=== PATIENT | female | born 2000 | race American Indian/Alaskan Native ===

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

== ENCOUNTER 2019-01-02 11:22 | Observation (INO) | payer MEDICAID, OTHER, SELFPAY ==
[2018-12-03 08:25] VITALS: BMI 32.4
[2019-01-02] MEDS: TERBUTALINE 1 MG/ML VIAL 0.25 MG SUBCUT (12:19)
--- NOTE | 2019-01-02 12:34 | PM.PROC.1 ---
Procedures Date/Time Date of procedure: 01/02/19 Time of procedure: 12:35 General Procedure description: Patient came in for attempt at external cephalic version for breech presentation at 38 weeks. Patient had a reactive nonstress test. Ultrasound shows breech presentation infant with posterior placenta and adequate fluid. Patient received subcutaneous terbutaline. 2 attempts to vert the baby were unsuccessful. Patient declined further attempt. In between each attempt the heart tones were seen to be normal. She will be monitored for 1 hour. She will have a section scheduled. Complications: none
== END 2019-01-02 14:08 | disposition home or self-care (01) ==
PROVIDERS: Admitting Provider Family Medicine; PCP Family Medicine; Visit Provider Family Medicine
DX: O32.1XX0 Maternal care for breech presentation, not applicable or unspecified (principal); Z3A.38 38 weeks gestation of pregnancy
CPT/HCPCS: 59025; 59050; 59412; 76815; 96372; G0378; G0379

== ENCOUNTER 2019-01-03 05:26 | Inpatient (IN) | payer MEDICAID, OTHER, SELFPAY ==
[2018-12-03 08:25] VITALS: BMI 32.4
[2019-01-03] VITALS (15 sets, daily range): BP systolic 128–157; BP diastolic 67–106; PULSE 67–116; RESP 11–18; TEMP 35.6–36; O2SAT 98–99
[2019-01-03] MEDS: LACTATED RINGERS 1,000 ML 100 ML IV ×4 (06:40→19:48)
--- NOTE | 2019-01-03 06:49 | PM.HP.1 ---
History of Present Illness History of Present Illness Date Patient Seen: 01/03/19 Time Patient Seen: 06:49 Chief complaint: [id number] Narrative: 18-year-old G2 para 1 estimated due date of 01 09 2019 consistent with early ultrasound and unsure LMP. Patient care established at 8 weeks gestational age patient had routine follow-up care with occasional no-show visits care complications include urinary tract infections acute cholecystitis anemia breech presentation and preeclampsia with elevated blood pressure and 3+ protein. During the patient had admission to the hospital and emergency room visits for acute cholecystitis. This was managed and monitored by a surgical evaluation and 1 hospital admission with antibiotics. Deemed not to be a a good surgical candidate due to her . She also was found to be anemic and started on ferrous gluconate. Patient had intermittent use of this medication during and was anemic throughout the . Baby was found to be breech presentation on examination at 31 weeks. Patient did not want to have a so an external version was tried yesterday unsuccessfully. And the last 2 weeks of . At her 38 week visit she had an elevated blood pressure in the office but repeat blood pressure was normal. On re-evaluation by me after seeing 1 of my partners her blood pressure was still elevated she was sent to the labor and delivery floor had preeclamptic blood workup which showed normal liver enzymes other than mildly elevated alkaline phosphatase normal uric acid normal kidney function normal platelet blood pressure was elevated. Two days later version was tried without success patient was then scheduled for . On my evaluation this morning. Patient is little bit anxious. But excited about having a baby. She says overnight she had a little bit of a headache. But she has had this on and off through the . Patient is complaining of mild lower extremity edema. Intermittent contractions. And she is NPO. labs O positive blood type antibody screen negative initial hemoglobin and hematocrit 11.9 and 35.9 most recent hemoglobin 8.7 platelet count 307 HIV negative GC chlamydia negative rubella nonimmune hepatitis-C negative Pap test within normal limits varicella nonimmune. Seventeen week integrated screen was normal. Twenty week ultrasound showed normal anatomy scan with an estimated due date of January 13, 2019. Patient's past medical history includes seasonal allergies and asthma history of anemia Previous surgical history wisdom teeth Social history patient denies alcohol illicit drugs during the . Patient History Family & Social History Social History: household members family Tobacco & Substance use: Smoking Status Never smoker alcohol intake never alcohol intake frequency 0-2 drinks per day Substance Use Type does not use Meds Home Medications and Allergies Home Medications Medication Instructions Recorded Confirmed Type prenat.vits,patrick,[id number] 1 tab PO DAILY 06/03/18 01/03/19 History ferrous gluconate 324 mg (37.5 mg 324 mg PO BID #60 tab 12/09/18 01/03/19 Rx iron) tablet Allergies Allergy/AdvReac Type Severity Reaction Status Date / Time No Known Drug Allergies Allergy Verified 12/09/18 13:51 Exam Vital Signs (past 8 hours): - 01/03/19 06:06 Blood Pressure 142/84 H Narrative Exam Narrative: . General: Alert no apparent distress. Affect is appropriate. Narcisa it is uncomfortable. HEENT: Neck is supple without lymphadenopathy pupils equal round and reactive. Cardio: S1-S2 regular rate and rhythm. Respiratory: Lungs clear to auscultation. Abdomen: Gravid. Extremities: Normal deep tendon reflexes trace edema. [place]: Intermittent contractions heart tones: Category 1 tracing Objective Labs Result Diagrams: 01/03/19 06:20 Assessment & Plan Assessment & Plan narrative: 18-year-old G2 para 1 with an estimated due date of 01/09/2019 consistent with early ultrasound. Patient is in the hospital today for section. is being done due to breech presentation with Nick version preeclampsia with elevated blood pressure and 3+ protein and swelling. Patient's additional complicated care is during the she had acute cholecystitis and hospital admission for that as well as emergency room visits requiring IV antibiotics. Other compounding factors are anemia previously before and during and most recent hemoglobin is 8.0. Plan at this point. Reviewed with patient family . Risks benefits and common complications of complications including bleeding infection possible injury to bladder bowel and even . Patient's hemoglobin is quite low. Will have 2 units ready for transfusion if needed during the . Patient will consent for blood products if needed. Patient's blood pressure is elevated we will provide labetalol for the patient after the delivery. Patient will receive preoperative antibiotics cefotetan 2 g. She of a Davis catheter placed as well as SCDs. Patient also will have an epidural during the surgical procedure. Patient will have LR at 100 cc/hour. She is NPO. All questions were answered consents were obtained from the patient before the surgery.
[2019-01-03] MEDS: CEFAZOLIN 2 GM/100 ML FROZ.PIGGY IV (08:10)
[2019-01-03 08:11] LABS: Add Manual Diff / Slide Review NO; Basophils Absolute Auto 0 /uL (0-100); Basophils Percent Auto 0.6 % (0-2); Eosinophils Absolute Auto 100 /uL (0-450); Eosinophils Percent Auto 1.2 % (2-4); Hematocrit 23.6 % (36-46); Hemoglobin 7.5 g/dL (12.0-16.0); Lymphocytes Absolute Auto 1300 /uL (1100-4500); Lymphocytes Percent Auto 16.3 % (25-40); Mean Corpuscular HGB Conc 31.8 % (30-36); Mean Corpuscular Hemoglobin 23.5 PG (26-34); Mean Corpuscular Volume 73.7 fL (80-100); Monocytes Absolute Auto 500 /uL (0-900); Neutrophils Absolute Auto 6200 /uL (1500-7000); Neutrophils Percent Auto 75.9 % (50-75); Platelet Count 299 X10^3/uL (150-400); Red Cell Distribution Width 17.9 % (11.6-14.8); White Blood Cell Count 8.2 X10^3/uL (4.5-11.0)
[2019-01-03 08:16] LABS: Aspartate Aminotransferase 19 IU/L (14-36); Blood Urea Nitrogen 12 mg/dL (7-17); Estimated Glomerular Filt Rate > 60.0 mL/min (>60); Uric Acid 5.5 mg/dL (2.5-6.2)
[2019-01-03 08:22] LABS: Alkaline Phosphatase 339 U/L (38-126); Aspartate Aminotransferase 20 IU/L (14-36); BUN Creatinine Ratio 18.3 (6-22); Bilirubin Total 0.5 mg/dL (0.2-1.3); Blood Urea Nitrogen 11 mg/dL (7-17); Calcium 8.6 mg/dL (8.4-10.2); Carbon Dioxide 20 mmol/L (22-32); Chloride 109 mmol/L (98-107); Estimated Glomerular Filt Rate > 60.0 mL/min (>60); Globulin 3.1 g/dL (1.7-4.1); Glucose 83 mg/dL (70-100); HEMOLYSIS < 15 (0-50); Lactate Dehydrogenase 502 U/L (313-618); Potassium 3.9 mmol/L (3.4-5.1); Sodium 138 mmol/L (137-145); Total Protein 6.1 g/dL (6.3-8.2)
[2019-01-03 08:23] LABS: Alanine Aminotransferase < 6 IU/L (9-52)
--- NOTE | 2019-01-03 09:13 | PM.PROC.1 ---
Procedures Date/Time Date of procedure: 01/03/19 Time of procedure: 09:13 General Procedure description: Procedure: Lower segment transverse section Consent: Verbal and written informed consent were obtained from the patient placed on the chart. Indications: 18-year-old G2 para 1 39 week gestational age breech presentation preeclampsia anemia Findings: [Normal uterus normal ovaries] Normal male Anesthesia: Epidural Surgeon: [Dr. Christiano Melgar] Head Of Sales: Dr. sherlyn Acosta Estimated blood loss: 400 mL Drains: Davis to gravity. IV fluids: 1800 LR Description of procedure: The patient was brought to the operating room after her spinal epidural, preparation, and Davis had been performed. The abdomen was prepped and draped in tested for for analgesia. When it was found to be adequate, a lower abdominal Pfannenstiel incision was made with first with a knife and cared down to the fascia with a second knife. The fascia was incised in the midline and extended laterally with a knife. Bleeding points were clamped with hemostats and Bovie coagulated. The rectus muscles were by blunt dissection. The rectus muscles were divided in the midline and the peritoneum was grasped with hemostats and carefully entered with Daly scissors. The incision was extended bilaterally. The bladder blade was then placed. The vesicoperitoneum was grasped with smooth pickups, entered with Metzenbaum scissors, and extended laterally. The bladder flap was created by gently blunt dissection and placed behind the bladder blade. The lower uterine segment was noted to be thin was carefully incised with the scalpel and extended laterally with the fingers. A live infant was found to be in the breech position. Baby's bottom was then able to be successfully delivered. And then delivery of each foot. And then successful delivery of each shoulder. With gentle pressure the head was delivered on the abdomen. There was terminal meconium. The baby was in plaster the waiting attendant. The placenta was delivered manually. The uterus was explored with a wet lap sponge and found to be clear membranes. The first layer of the uterine closure was with running locking #1 chromic catgut suture. The second layer with an imbricating #1 chromic catgut suture. Hemostasis was carefully checked and found to be satisfactory. The bladder flap was closed with a running 2-0 chromic catgut suture. The fallopian tubes and ovaries were inspected and to be found normal bilaterally. After sponge and needle counts were found to be correct the peritoneum was closed with 2-0 chromic catgut suture. Rectus muscles were approximated in the lower midline. The fascia was closed with a 2-0 running 0 Vicryl from lateral to midline. The subcutaneous tissue was approximated with interrupted 2.0 plain gut. Bleeding points were Bovie and coagulated. The subcutaneous tissue was approximated with 2.0 plain gut suture. The skin was closed with 1-0 running subcuticular stitch. Urinary output was adequate and normal patient left to the recovery room in good condition.
--- NOTE | 2019-01-03 09:40 | SUR.PHASEI ---
Report called to
[2019-01-03] MEDS: KETOROLAC 30 MG/ML VIAL IV ×3 (10:02→23:02)
[2019-01-03] MEDS: LABETALOL 20 MG/4 ML SYRINGE 5 MG IV (11:22)
--- NOTE | 2019-01-03 12:14 | SUR.OPER ---
Supine on Padded OR bed, head on pillow, safety belt at thigh, arms secured on padded arm boards at <90 degrees abduction. Bump under right buttock. Legs uncrossed with pillow under knees, gel pad to heels, tape over blanket to lower legs.
[2019-01-03] MEDS: LABETALOL 100 MG TABLET 200 MG PO ×2 (13:16→21:25)
[2019-01-03 16:25] LABS: Hematocrit 23.9 % (36-46); Hemoglobin 7.3 g/dL (12.0-16.0)
[2019-01-03] MEDS: FERROUS GLUCONATE 324 MG TABLET PO (21:24)
[2019-01-04] MEDS: OXYCODONE/ACETAMINOPHEN 5/325 TABLET 2 TAB PO ×2 (05:53→21:01)
[2019-01-04 06:26] LABS: Basophils Absolute Auto 0 /uL (0-100); Basophils Percent Auto 0.4 % (0-2); Eosinophils Absolute Auto 0 /uL (0-450); Eosinophils Percent Auto 0.2 % (2-4); Lymphocytes Absolute Auto 1500 /uL (1100-4500); Lymphocytes Percent Auto 15.6 % (25-40); Mean Corpuscular HGB Conc 31.3 % (30-36); Mean Corpuscular Hemoglobin 23.2 PG (26-34); Mean Corpuscular Volume 73.9 fL (80-100); Monocytes Absolute Auto 600 /uL (0-900); Monocytes Percent Auto 6.2 % (3-14); Neutrophils Absolute Auto 7400 /uL (1500-7000); Neutrophils Percent Auto 77.6 % (50-75); Platelet Count 245 X10^3/uL (150-400); Red Blood Cell Count 2.63 X10^6/uL (4.0-5.2); Red Cell Distribution Width 17.8 % (11.6-14.8); White Blood Cell Count 9.5 X10^3/uL (4.5-11.0)
[2019-01-04 06:29] LABS: Add Manual Diff / Slide Review SLIDE REVIEW; Hematocrit 19.4 % (36-46); Hemoglobin 6.1 g/dL (12.0-16.0)
[2019-01-04 06:41] LABS: Alanine Aminotransferase 9 IU/L (9-52); Albumin 2.3 g/dL (3.5-5.0); Albumin Globulin Ratio 0.9 (1.0-2.8); Alkaline Phosphatase 204 U/L (38-126); Aspartate Aminotransferase 20 IU/L (14-36); BUN Creatinine Ratio 21.4 (6-22); Bilirubin Total 0.3 mg/dL (0.2-1.3); Blood Urea Nitrogen 15 mg/dL (7-17); Carbon Dioxide 21 mmol/L (22-32); Chloride 109 mmol/L (98-107); Estimated Glomerular Filt Rate > 60.0 mL/min (>60); Globulin 2.5 g/dL (1.7-4.1); Glucose 92 mg/dL (70-100); HEMOLYSIS < 15 (0-50); Sodium 134 mmol/L (137-145); Total Protein 4.8 g/dL (6.3-8.2)
[2019-01-04 06:47] LABS: Anisocytosis 1+; Polychromasia 1+
--- NOTE | 2019-01-04 07:03 | P.PN_ITS ---
Subjective Subjective Date Patient Seen: 01/04/19 Time Patient Seen: 07:03 Interval history: Mom did well yesterday. Had an episode of low urine output. Given a fluid bolus. Patient is starting to diurese now just fine. Had greater than 2000 mL out over the last 6 hours. Were before that urine output was mild. Mom's not complaining of significant pain. Vaginal bleeding has been appropriate. Some mild incisional pain and bleeding which has stopped. Hemog lobin hematocrit is slowly drifting down as anticipated as we started out quite low. Mom's receiving iron labetalol. Blood pressures have been looking good. Last blood pressure 135/81 pulse 82. She has been eating well. No nausea. Exam Vital Signs (past 8 hours): Oxygen Delivery Method Room Air Narrative Exam Narrative: General: Alert no apparent distress. Affect is appropriate. Narcisa it is uncomfortable. HEENT: Neck is supple without lymphadenopathy pupils equal round and reactive. Cardio: S1-S2 regular rate and rhythm. Respiratory: Lungs clear to auscultation. Abdomen: Uterus firm. Incision clean dry and intact. Extremities: Normal deep tendon reflexes 1+ edema. Objective Labs Result Diagrams: 01/04/19 06:10 01/04/19 06:10 Labs: Laboratory Results - last 24 hr 01/03/19 01/03/19 01/03/19 06:20 06:20 07:30 WBC Cancelled 8.2 RBC Cancelled 3.20 L Hgb Cancelled 7.5 L Hct Cancelled 23.6 L MCV Cancelled 73.7 L MCH Cancelled 23.5 L MCHC Cancelled 31.8 RDW Cancelled 17.9 H Plt Count Cancelled 299 Neut % (Auto) Cancelled 75.9 H Lymph % (Auto) Cancelled 16.3 L [place] % (Auto) Cancelled 6.0 Eos % (Auto) Cancelled 1.2 L Baso % (Auto) Cancelled 0.6 Neut # (Auto) Cancelled 6200 Lymph # (Auto) Cancelled 1300 [place] # (Auto) Cancelled 500 Eos # (Auto) Cancelled 100 Baso # (Auto) Cancelled 0 RBC Morphology Polychromasia Anisocytosis Sodium Potassium Chloride Carbon Dioxide BUN Creatinine Estimated GFR BUN/Creatinine Ratio Glucose Uric Acid Calcium Total Bilirubin AST ALT Alkaline Phosphatase Lactate Dehydrogenase Total Protein Albumin Globulin Albumin/Globulin Ratio Blood Type O Positive Antibody Screen Negative Crossmatch See Detail 01/03/19 01/03/19 01/03/19 07:30 07:30 07:30 WBC RBC Hgb Hct MCV MCH MCHC RDW Plt Count Neut % (Auto) Lymph % (Auto) [place] % (Auto) Eos % (Auto) Baso % (Auto) Neut # (Auto) Lymph # (Auto) [place] # (Auto) Eos # (Auto) Baso # (Auto) RBC Morphology Polychromasia Anisocytosis Sodium 138 Potassium 3.9 Chloride 109 H Carbon Dioxide 20 L BUN 12 11 Creatinine 0.60 0.60 Estimated GFR > 60.0 > 60.0 BUN/Creatinine Ratio 20.0 18.3 Glucose 83 Uric Acid 5.5 Calcium 8.6 Total Bilirubin 0.5 AST 19 20 ALT < 6 L Alkaline Phosphatase 339 H Lactate Dehydrogenase 502 Total Protein 6.1 L Albumin 3.0 L Globulin 3.1 Albumin/Globulin Ratio 1.0 Blood Type Antibody Screen Crossmatch 01/03/19 01/04/19 01/04/19 16:08 06:10 06:10 WBC 9.5 RBC 2.63 L Hgb 7.3 L 6.1 L* Hct 23.9 L 19.4 L* MCV 73.9 L MCH 23.2 L MCHC 31.3 RDW 17.8 H Plt Count 245 Neut % (Auto) 77.6 H Lymph % (Auto) 15.6 L [place] % (Auto) 6.2 Eos % (Auto) 0.2 L Baso % (Auto) 0.4 Neut # (Auto) 7400 H Lymph # (Auto) 1500 [place] # (Auto) 600 Eos # (Auto) 0 Baso # (Auto) 0 RBC Morphology See below Polychromasia 1+ H Anisocytosis 1+ H Sodium 134 L Potassium 4.0 Chloride 109 H Carbon Dioxide 21 L BUN 15 Creatinine 0.70 Estimated GFR > 60.0 BUN/Creatinine Ratio 21.4 Glucose 92 Uric Acid Calcium 8.0 L Total Bilirubin 0.3 AST 20 ALT 9 Alkaline Phosphatase 204 H Lactate Dehydrogenase Total Protein 4.8 L Albumin 2.3 L Globulin 2.5 Albumin/Globulin Ratio 0.9 L Blood Type Antibody Screen Crossmatch Assessment & Plan Assessment & Plan narrative: 18-year-old G2 para 1 term status post for breech presentation Anemia acute blood loss anemia on top of this Preeclampsia Patient is doing well today. Patient's urine output is now adequate. Normal labs this morning including liver enzymes as well as creatinine. She is diur esing well. Still has some edema with normal reflexes. Her blood pressure still elevated. Will continue with labetalol 200 mg twice a day. Anemia in as well as acute blood loss anemia due to surgery. Hemoglobin is down to 6. She is relatively asymptomatic at this point will continue monitoring blood counts. Hold off on transfusion at this point because she is not significantly symptomatic. Will continue with iron supplementation. vitamins. And dietary improvement may be beneficial to do IV iron in this patient. As far as pain goes patient is well controlled with current pain medication. Tolerating her diet. Plan will be later today to do remove her SCDs and Davis catheter. Stand up and ambulate. She will continue working on breast-feeding.
[2019-01-04 09:17] VITALS: BP 146/92; PULSE 78
[2019-01-04] MEDS: FERROUS GLUCONATE 324 MG TABLET PO ×2 (09:17→21:02)
[2019-01-04] MEDS: PRENATAL VIT,CALC/IRON/FOLIC 1 TABLET 1 TAB PO (09:17)
[2019-01-04] MEDS: LABETALOL 100 MG TABLET 200 MG PO (09:17)
[2019-01-04] MEDS: DOCUSATE 250 MG CAPSULE PO (09:17)
[2019-01-04 15:48] VITALS: BP 162/104; PULSE 97
[2019-01-04] MEDS: LABETALOL 100 MG TABLET PO (15:48)
[2019-01-04] MEDS: IBUPROFEN 600 MG TABLET PO (21:02)
[2019-01-04 21:03] VITALS: BP 154/100; PULSE 98
[2019-01-04] MEDS: LABETALOL 100 MG TABLET 300 MG PO (21:03)
[2019-01-05] MEDS: IBUPROFEN 600 MG TABLET PO ×3 (03:44→16:39)
[2019-01-05] MEDS: OXYCODONE/ACETAMINOPHEN 5/325 TABLET 2 TAB PO ×3 (03:44→21:13)
[2019-01-05 05:34] LABS: Add Manual Diff / Slide Review NO; Basophils Absolute Auto 100 /uL (0-100); Basophils Percent Auto 0.8 % (0-2); Eosinophils Absolute Auto 100 /uL (0-450); Eosinophils Percent Auto 1.5 % (2-4); Lymphocytes Absolute Auto 1900 /uL (1100-4500); Lymphocytes Percent Auto 23.2 % (25-40); Mean Corpuscular HGB Conc 32.3 % (30-36); Mean Corpuscular Hemoglobin 23.6 PG (26-34); Mean Corpuscular Volume 73.2 fL (80-100); Monocytes Absolute Auto 600 /uL (0-900); Monocytes Percent Auto 6.9 % (3-14); Neutrophils Absolute Auto 5400 /uL (1500-7000); Neutrophils Percent Auto 67.6 % (50-75); Platelet Count 257 X10^3/uL (150-400); Red Blood Cell Count 2.74 X10^6/uL (4.0-5.2); White Blood Cell Count 8.1 X10^3/uL (4.5-11.0)
[2019-01-05 05:36] LABS: Alanine Aminotransferase 16 IU/L (9-52); Albumin 2.5 g/dL (3.5-5.0); Alkaline Phosphatase 182 U/L (38-126); Aspartate Aminotransferase 19 IU/L (14-36); BUN Creatinine Ratio 17.5 (6-22); Bilirubin Total 0.3 mg/dL (0.2-1.3); Blood Urea Nitrogen 14 mg/dL (7-17); Calcium 8.4 mg/dL (8.4-10.2); Carbon Dioxide 23 mmol/L (22-32); Chloride 108 mmol/L (98-107); Estimated Glomerular Filt Rate > 60.0 mL/min (>60); Globulin 2.6 g/dL (1.7-4.1); Glucose 83 mg/dL (70-100); HEMOLYSIS < 15 (0-50); Potassium 4.4 mmol/L (3.4-5.1); Sodium 137 mmol/L (137-145); Total Protein 5.1 g/dL (6.3-8.2)
[2019-01-05 05:50] LABS: Hemoglobin 6.5 g/dL (12.0-16.0)
[2019-01-05 09:40] VITALS: BP 154/100
[2019-01-05] MEDS: LABETALOL 100 MG TABLET 300 MG PO ×2 (09:40→21:13)
[2019-01-05] MEDS: PRENATAL VIT,CALC/IRON/FOLIC 1 TABLET 1 TAB PO (09:40)
[2019-01-05] MEDS: FERROUS GLUCONATE 324 MG TABLET PO ×2 (09:41→21:13)
--- NOTE | 2019-01-05 10:19 | PM.PN.1 ---
Subjective Subjective Date Patient Seen: 01/05/19 Time Patient Seen: 10:20 Interval history: day 2. . Mom's doing well Davis catheter is now removed. She is wearing SCDs in bed. She is up sitting in the chair at times. Tolerating diet. No significant lightheaded and dizziness while standing no problems with headache. She is anticipating getting in the shower later today. She says her pain is well controlled. Bleeding is anticipated. She is really not symptomatic from her profound anemia. She still complained of lower extremity swelling. She says breast-feeding is going well. Exam Vital Signs (past 8 hours): - 01/05/19 09:40 Blood Pressure 154/100 H Oxygen Delivery Method Room Air Narrative Exam Narrative: General: Alert no apparent distress. Affect is appropriate. Narcisa it is uncomfortable. HEENT: Neck is supple without lymphadenopathy pupils equal round and reactive. Cardio: S1-S2 regular rate and rhythm. Respiratory: Lungs clear to auscultation. Abdomen: Uterus firm. Incision clean dry and intact. Extremities: Normal deep tendon reflexes 1+ edema. Objective Labs Result Diagrams: 01/05/19 05:11 01/05/19 05:11 Labs: Laboratory Results - last 24 hr 01/05/19 01/05/19 05:11 05:11 WBC 8.1 RBC 2.74 L Hgb 6.5 L* Hct 20.0 L* MCV 73.2 L MCH 23.6 L MCHC 32.3 RDW 18.0 H Plt Count 257 Neut % (Auto) 67.6 Lymph % (Auto) 23.2 L [place] % (Auto) 6.9 Eos % (Auto) 1.5 L Baso % (Auto) 0.8 Neut # (Auto) 5400 Lymph # (Auto) 1900 [place] # (Auto) 600 Eos # (Auto) 100 Baso # (Auto) 100 Sodium 137 Potassium 4.4 Chloride 108 H Carbon Dioxide 23 BUN 14 Creatinine 0.80 Estimated GFR > 60.0 BUN/Creatinine Ratio 17.5 Glucose 83 Calcium 8.4 Total Bilirubin 0.3 AST 19 ALT 16 Alkaline Phosphatase 182 H Total Protein 5.1 L Albumin 2.5 L Globulin 2.6 Albumin/Globulin Ratio 1.0 Assessment & Plan Assessment & Plan narrative: 18-year-old G2 para 1 status post for breech presentation preeclampsia and profound anemia in with acute blood loss anemia. Plan hemoglobin hematocrit is stable mildly improved. She is off IV fluids tolerating oral diet she is on iron supplementation as well as vitamins. She says she was not taking iron pills before even though we had discussed with that multiple times. Hold off on transfusion at this point because she is not significantly symptomatic. Preeclampsia. Normal liver enzymes normal kidney function platelets are normal as well. Blood pressure is labile. Labetalol was increased to 300 mg twice daily. We may add in a 3 times a day dose for the patient. Really asymptomatic from headache blurry vision symptomatology. Davis catheter was removed. At patient is ambulating SCDs while in bed. Tolerating diet. Urination is okay no bowel movement yet. As anticipated vaginal bleeding for postoperative . Discharge possibly tomorrow
[2019-01-05] MEDS: HYDROCODONE/ACET 5/325 TABLET 2 TAB PO (16:39)
[2019-01-05 21:13] VITALS: BP 162/105; PULSE 87
[2019-01-06] MEDS: OXYCODONE/ACETAMINOPHEN 5/325 TABLET 2 TAB PO (05:05)
--- NOTE | 2019-01-06 07:27 | P.DS_ITS ---
History of Present Illness History of Present Illness Chief complaint: [id number] Narrative: 18-year-old G2 para 1 estimated due date of 01 09 2019 consistent with early ultrasound and unsure LMP. Patient care established at 8 weeks gestational age patient had routine follow-up care with occasional no-show v isits care complications include urinary tract infections acute cholecystitis anemia breech presentation and preeclampsia with elevated blood pressure and 3+ protein. During the patient had admission to the hospital and emergency room visits for acute cholecystitis. This was managed and monitored by a surgical evaluation and 1 hospital admission with antibiotics. Deemed not to be a a good surgical candidate due to her . She also was found to be anemic and started on ferrous gluconate. Patient had intermittent use of this medication during and was anemic throughout the . Baby was found to be breech presentation on examination at 31 weeks. Patient did not want to have a so an external version was tried yesterday unsuccessfully. And the last 2 weeks of . At her 38 week visit she had an elevated blood pressure in the office but repeat blood pressure was normal. On re-evaluation by me after seeing 1 of my partners her blood pressure was still elevated she was sent to the labor and delivery floor had preeclamptic blood workup which showed normal liver enzymes other than mildly elevated alkaline phosphatase normal uric acid normal kidney function normal platelet blood pressure was elevated. Two days later version was tried without success patient was then scheduled for . On my evaluation this morning. Patient is little bit anxious. But excited about having a baby. She says overnight she had a little bit of a headache. But she has had this on and off through the . Patient is complaining of mild lower extremity edema. Intermittent contractions. And she is NPO. labs O positive blood type antibody screen negative initial hemoglobin and hematocrit 11.9 and 35.9 most recent hemoglobin 8.7 platelet count 307 HIV negative GC chlamydia negative rubella nonimmune hepatitis-C negative Pap test within normal limits varicella nonimmune. Seventeen week integrated screen was normal. Twenty week ultrasound showed normal anatomy scan with an estimated due date of January 13, 2019. Patient's past medical history includes seasonal allergies and asthma history of anemia Previous surgical history wisdom teeth Social history patient denies alcohol illicit drugs during the . Discharge Providers Provider Date of admission: 01/03/19 05:26 Discharge Date: 01/06/19 Primary care physician: Anna Winters MD Consults: 01/03/19 09:53 Consult to Headwaiter/Headwaitress Routine Comment: Discharge provider: Christiano Melgar MD Summary Hospital Course Discharge Diagnosis: Primary for breech presentation Preeclampsia Iron deficiency Anemia of with acute blood loss anemia Delivery of a viable male infant Hospital Course: Patient was brought to the hospital for section due to breech presentation preeclampsia. Patient was at 39 weeks gestational age. Baby had delivery of viable male infant without complications. care was complicated by hypertension protein urea. Patient was started on labetalol. She had good control of her blood pressure. Patient had profound anemia before the . She had type and screen for 2 units she was not given any blood transfusion. Her blood loss was less than normal for her hemoglobin hematocrit dropped as anticipated. She was asymptomatic with her anemia. She is placed on iron supplementation. Encouraged dietary changes. During her hospital stay she was breast-feeding her pain was well controlled day 2. Her SCD Davis catheters were removed she was up ambulating on day 2. She was tolerating her diet showering. On day 3. She was discharged. Her incision was clean and dry and intact her vaginal bleeding was expected after 4 . Exam Vital Signs (past 8 hours): Oxygen Delivery Method Room Air Narrative Exam Narrative: General: Alert no apparent distress. Affect is appropriate. Narcisa it is uncomfortable. HEENT: Neck is supple without lymphadenopathy pupils equal round and reactive. Cardio: S1-S2 regular rate and rhythm. Respiratory: Lungs clear to auscultation. Abdomen: Uterus firm. Incision clean dry and intact. Extremities: Normal deep tendon reflexes 1+. Objective Labs Result Diagrams: 01/05/19 05:11 01/05/19 05:11 Discharge Plan Discharge Plan Patient Disposition: Home Discharge comment: Discharge home follow-up on Sunday for incision check with Dr. Melgar Discharge Med Rec/Prescriptions Prescriptions: New docusate sodium 250 mg Capsule 250 mg PO DAILY Qty: 20 RF: 0 oxycodone-acetaminophen 5-325 mg Tablet 1 tab PO Q4HR PRN (Reason: Pain, Moderate (4-6)) Qty: 20 RF: 0 ibuprofen 600 mg Tablet 600 mg PO Q6HR PRN (Reason: As Needed For Fever/Mild Pain) Qty: 40 RF: 0 labetalol 100 mg Tablet 300 mg PO BID Qty: 60 RF: 1 labetalol 300 mg tablet 300 mg PO BID Qty: 60 RF: 1 Continued prenat.vits,patrick,bfh-boxk-tlary tablet 1 tab PO DAILY RF: 0 ferrous gluconate 324 mg (37.5 mg iron) tablet 324 mg PO BID Qty: 60 RF: 1 Follow up/Referrals: Anna Winters MD [Primary Care Provider] - Visit Report/Discharge Packet Visit Report Forms: Stroke Signs & Symptoms Discharge Data Primary Care Provider: Anna Winters
[2019-01-06 07:58] LABS: Hemoglobin 6.3 g/dL (12.0-16.0)
[2019-01-06 07:59] LABS: Hematocrit 20.4 % (36-46)
[2019-01-06 08:17] LABS: HEMOLYSIS < 15 (0-50); Iron 53 ug/dL (37-170)
[2019-01-06 08:27] LABS: Percent Iron Saturation 13 % (15-50); Total Iron Binding Capacity 403 ug/dL (265-497); Transferrin 346 mg/dL (206-381)
[2019-01-06 08:36] LABS: Ferritin 7.5 ng/mL (6.27-137)
[2019-01-06] MEDS: LABETALOL 100 MG TABLET 300 MG PO (09:14)
[2019-01-06] MEDS: DOCUSATE 250 MG CAPSULE PO (09:14)
[2019-01-06] MEDS: OXYCODONE/ACETAMINOPHEN 5/325 TABLET 1 TAB PO (09:14)
[2019-01-06] MEDS: PRENATAL VIT,CALC/IRON/FOLIC 1 TABLET 1 TAB PO (09:14)
[2019-01-06] MEDS: FERROUS GLUCONATE 324 MG TABLET PO (09:15)
== END 2019-01-06 12:15 | disposition home or self-care (01) | DRG 787 ==
PROVIDERS: Admitting Provider Family Medicine; PCP Family Medicine; Visit Provider Family Medicine
PROC: 10D00Z1 Extraction of Products of Conception, Low, Open Approach (ICD-10-PCS; CPT 59514; principal; 2019-01-03 07:45)
DX: O64.1XX0 Obstructed labor due to breech presentation, not applicable or unspecified (principal); D62 Acute posthemorrhagic anemia; O99.02 Anemia complicating childbirth; D50.9 Iron deficiency anemia, unspecified; Z3A.39 39 weeks gestation of pregnancy; Z37.0 Single live birth; O14.94 Unspecified pre-eclampsia, complicating childbirth; O77.0 Labor and delivery complicated by meconium in amniotic fluid
CPT/HCPCS: 36415; 59025; 59050; 59412; 59514; 59515; 76815; 80053; 82728; 83540; 83550; 83615; 84450; 84550; 85014; 85018; 85025; 86850; 86900; 86901; 96372; G0378; G0379; J0690; J1100; J1885; J2250; J2274; J2405; J2590; J2765

== ENCOUNTER 2021-07-10 21:30 | Emergency (ER) | payer MEDICAID, OTHER, SELFPAY ==
[2018-12-03 08:25] VITALS: BMI 32.4
[2021-07-10 21:41] VITALS: BP 135/91; PULSE 77; RESP 16; TEMP 36.6; O2SAT 99
--- NOTE | 2021-07-10 21:58 | DI.US.S_ITS ---
PROCEDURE: US PELVIC COMPLETE INDICATIONS: vaginal bleeding, pelvic pain TECHNIQUE: Real-time scanning was performed of the pelvic organs, with image documentation. Additional endovaginal scanning was necessary due to incomplete visualization of the adnexal and endometrial structures by transabdominal scanning. COMPARISON: None. FINDINGS: Uterus: Uterus is retroverted and normal in size at 7.3 x 4.0 x 5 point cm. The myometrium is homogeneous. The endometrium measures 10.3 mm combined thickness. Echotexture of the uterus is normal. Ovaries: The right ovary measures 3.0 x 1.5 x 1.6 cm. The left ovary measures 3.2 x 1.2 x 1.1 cm. The ovaries have a normal sonographic appearance. Less than 12 follicles can be seen in each ovary. No adnexal masses are seen. Other: No pathologic free abdominal or pelvic fluid. IMPRESSION: Normal pelvic sonogram. Dictated by: Brooke Edward MD, PhD on 07/10/2021 at 22:26 Approved by: Brooke Edward MD, PhD on 07/10/2021 at 22:27
--- NOTE | 2021-07-10 21:59 | ED_ITS ---
HPI - Female Genitourinary General Chief complaint: Urogenital-Female Stated complaint: Lower abd/low back pain/bleeding/cramping x2days Time Seen by Provider: 07/10/21 21:41 Source: patient Mode of arrival: Ambulatory Limitations: no limitations History of Present Illness HPI Narrative: This is a 20-year-old female comes with complaint of lower pelvic pain, low back cramping that is been present for 1 day. Patient started having vaginal bleeding 2 days ago. She has not had a period in several months. She states she does typically have irregular periods. She is not on any sort of oral contraceptive or other type of contraceptive. Patient denies other medical issues. She states she believed today which typically resolves her cramps and was not adequate or helpful. She denies fevers or chills. No nausea or vomiting. No chest pain or shortness of breath. No diarrhea constipation. No black or bloody stools. She states it hurts in her pelvic area when she urinates but no back or flank pain when she urinates. She denies any drug allergies. She is accompanied by her grandmother. No tobacco, occasional alcohol, no illicit. Related Data Previous Rx's Medication Instructions Recorded docusate sodium 250 mg capsule 250 mg PO DAILY #20 cap 01/05/19 ferrous gluconate 324 mg (37.5 mg 324 mg PO BID #60 tab 01/05/19 iron) tablet ibuprofen 600 mg tablet 600 mg PO Q6HR PRN #40 tab 01/05/19 labetalol 100 mg tablet 300 mg PO BID #60 tab 01/05/19 oxycodone-acetaminophen 5 mg-325 1 tab PO Q4HR PRN #20 tab 01/05/19 mg tablet labetalol 300 mg tablet 300 mg PO BID #60 tab 01/06/19 prenat.vits,patrick,auz-bbeh-aghlb 1 tab PO DAILY #90 tab 01/10/19 ondansetron HCl 4 mg tablet 4 mg PO Q8H #20 tab 07/17/19 (Zofran) meloxicam 7.5 mg tablet 7.5 mg PO BID PRN #14 tab 07/10/21 Allergies Allergy/AdvReac Type Severity Reaction Status Date / Time No Known Drug Allergies Allergy Verified 01/10/19 13:48 Review of Systems Review of Systems ROS Unobtainable: All systems reviewed & are unremarkable except as noted in HPI and below Patient History Medical History Iron deficiency anemia Preeclampsia alcohol intake frequency: 0-2 drinks per day Substance Use Type: does not use Exam Narrative Exam Narrative: GENERAL: Alert and oriented x three, female in qagv-ti-itdtilht distress. HEENT: Head normocephalic, atraumatic, EOMI, pupils reactive, face symmetric, moist mucous membranes NECK: Supple, full range of motion CARDIOVASCULAR: Regular rate and rhythm without murmurs, rubs or gallops. RESPIRATORY: Breath sounds equal bilaterally, no wheezes rales or rhonchi. ABDOMEN: Soft, suprapubic tenderness. Normoactive bowel sounds all 4 quadrants. No guarding or rebound, rigidity, no mass : No CVA tenderness EXTREMITIES: Normal range of motion, no clubbing or edema. Neurovascularly intact NEUROLOGICAL: Cranial nerves II through XII grossly intact. Moving all extremities SKIN: Warm, dry, no petechiae, no rashes or lesions. Initial Vital Signs Initial Vital Signs: Vital Signs Temperature 97.8 F 07/10/21 21:41 Pulse Rate 77 07/10/21 21:41 Respiratory Rate 16 07/10/21 21:41 Blood Pressure 135/91 H 07/10/21 21:41 Pulse Oximetry 99 07/10/21 21:41 Course Orders Ordered: ED Orders 07/10/21 21:50 Urine Culture Stat Urine Microscopic Stat 07/10/21 21:58 US pelvic complete Stat Discontinued Medications Ketorolac Tromethamine (Ketorolac 30 Mg/Ml Vial) 30 mg IM NOW ONE Stop: 07/10/21 21:59 Last Admin: 07/10/21 22:17 Dose: 30 mg Documented by: HINA Reevaluation(s) Reevaluation #1: Patient feels much better after Toradol. Reviewed her pelvic ultrasound imaging. Patient would like prescription for similar type medication she received today. We did discuss she should not take other NSAIDs with this medication but that Tylenol is appropriate. Also discussed return precautions and signs and symptoms to watch for. Time: 23:21 Vital Signs Vital signs: Vital Signs - 8 hr 07/10/21 21:41 07/10/21 23:33 Temperature 97.8 F Pulse Rate 77 66 Respiratory Rate 16 14 Blood Pressure 135/91 H 144/77 H Pulse Oximetry 99 98 [facility] - Female Genitourinary Lab Data Labs: Lab Results 07/10/21 Range/Units 21:50 Urine RBC >100/hpf H (0-5/HPF) Urine WBC 0-1/hpf (0-5/HPF) Urine Bacteria None seen (None) Ur Culture Indicated? Specimen cultured Point of Care Testing Test Results Negative Urine Dip Bedside Urine Occult Blood +++ Bedside Urine Protein +/- 15 Bedside Urine Leukocytes + 70 Esterase Imaging Data pelvic US: Radiologist's Impression: Launch?[place] [id number] Ultrasound Report Signed Patient: Ranjit Carrillo MR#: [id number] : 2000 Acct:[id number] Age/Sex: 20 / F Date of Service: 07/10/21 Loc: ED Accession Number: [id number] ?? Procedure: US pelvic complete Ordering Provider: Linda Reyes D.O. PROCEDURE:? US PELVIC COMPLETE ? INDICATIONS:? vaginal bleeding, pelvic pain ? TECHNIQUE:? Real-time scanning was performed of the pelvic organs, with image documentation.? Additional endovaginal scanning was necessary due to incomplete visualization of the adnexal and endometrial structures by transabdominal scanning.? ? COMPARISON:? None. ? FINDINGS:? ?? Uterus:? Uterus is retroverted and normal in size at 7.3 x 4.0 x 5 point cm. The myometrium is homogeneous. ? The endometrium measures 10.3 mm combined thickne ss.? Echotexture of the uterus is normal. ? Ovaries:? The right ovary measures 3.0 x 1.5 x 1.6 cm. The left ovary measures 3.2 x 1.2 x 1.1 cm. The ovaries have a normal sonographic appearance. Less than 12 follicles can be seen in each ovary.? No adnexal masses are seen. ? Other:? No pathologic free abdominal or pelvic fluid. ? ? IMPRESSION:? Normal pelvic sonogram. ? ? Dictated by: Brooke Edward MD, PhD on 07/10/2021 at 22:26 ? ? Approved by: Brooke Edward MD, PhD on 07/10/2021 at 22:27?? [facility] Narrative Medical decision making narrative: This is a 20-year-old female with irregular menses who has not had a menstrual cycle in several months. She started having bleeding yesterday and significant cramping in her lower pelvis and back today. She tried her normal medications without any improvement. She arrives and had improvement with Toradol IM. Pelvic ultrasound does not show any acute changes, ovarian cyst or other inappropriate findings. The rest were abdominal exam is reassuring as well as her vital signs. Discussed with patient I suspect she is having her menstrual cycle but very heavy, she has gone through 2 tampons in a 8-12 hour. With several large clots. Patient feels comfortable returning home discussed return precautions plan for additional option for pain control at home. Discharge Plan Departure Patient Disposition: Home Clinical Impression: Dysmenorrhea, History of irregular menstrual cycles Instructions: DI for Dysmenorrhea Activity Restrictions/Additional Instructions: Follow-up with your physician if you continue to have persistent issues with menstrual cycles. Somewhat been find oral contraceptives helpful to moderate symptoms. You may take meloxicam 1 tablet every 12 hours as needed. Do not take ibuprofen, Aleve or other NSAIDs with this medication. You may take Tylenol up to a 1000 mg every 8 hours with this medication. Prescription sent to [facility] Please return for fevers, rapidly worsening abdominal, back or pelvic pain, persistent vomiting, lightheadedness or passing out, shortness of breath, going through more than 1 pad or tampon an hour or other new or concerning symptoms. Prescriptions: New meloxicam 7.5 mg tablet 7.5 mg PO BID PRN (Reason: pain) Qty: 14 0RF No Action prenat.vits,patrick,qmf-tfgp-vjhyt tablet 1 tab PO DAILY Qty: 90 3RF ondansetron HCl [Zofran] 4 mg tablet 4 mg PO Q8H Qty: 20 0RF docusate sodium 250 mg Capsule 250 mg PO DAILY Qty: 20 0RF oxycodone-acetaminophen 5-325 mg Tablet 1 tab PO Q4HR PRN (Reason: Pain, Moderate (4-6)) Qty: 20 0RF ibuprofen 600 mg Tablet 600 mg PO Q6HR PRN (Reason: As Needed For Fever/Mild Pain) Qty: 40 0RF labetalol 100 mg Tablet 300 mg PO BID Qty: 60 1RF ferrous gluconate 324 mg (37.5 mg iron) tablet 324 mg PO BID Qty: 60 1RF labetalol 300 mg tablet 300 mg PO BID Qty: 60 1RF Referrals: Anna Winters MD [Primary Care Provider] -
[2021-07-10 22:09] LABS: Bacteria Urine None Seen; Culture Indicated Urine Specimen Cultured; RBC Urine >100/HPF (0-5/HPF); WBC Urine 0-1/HPF (0-5/HPF)
[2021-07-10] MEDS: KETOROLAC 30 MG/ML VIAL IM (22:17)
[2021-07-10 23:33] VITALS: BP 144/77; PULSE 66; RESP 14; O2SAT 98
== END 2021-07-10 23:34 | disposition home or self-care (01) ==
PROVIDERS: Emergency Provider Emergency Medicine; PCP Family Medicine
DX: N94.6 Dysmenorrhea, unspecified (principal)
CPT/HCPCS: 76856; 81003; 81015; 81025; 87086; 96372; 99283; J1885

== ENCOUNTER 2022-01-03 21:51 | Inpatient (IN) | payer MEDICAID, OTHER, SELFPAY ==
[2018-12-03 08:25] VITALS: BMI 32.4
[2022-01-03 21:54] VITALS: BP 133/60; PULSE 83; RESP 18; O2SAT 99; BMI 30.1
--- NOTE | 2022-01-03 21:57 | DI.RAD.S_ITS ---
PROCEDURE: XR TIBIA FUBULA RT 2V INDICATIONS: trauma TECHNIQUE: 2 views of the tibia and fibula were acquired. COMPARISON: [facility], CR, TIB/FIB 2V LEFT, 11/17/2015, 13:01. FINDINGS: Bones: There are mildly displaced fractures of the distal tibial and fibular shafts with mild lateral angulation. Soft tissues: No suspicious soft tissue calcifications or masses. IMPRESSION: 1. Mildly displaced and angulated fractures of the tibial and fibular shafts. Dictated by: Tyler Berry M.D. on 01/03/2022 at 23:28 Approved by: Tyler Berry M.D. on 01/03/2022 at 23:29
[2022-01-03 22:00] VITALS: PULSE 93; O2SAT 96
[2022-01-03 22:01] VITALS: BP 132/89; PULSE 79; O2SAT 97
[2022-01-03 22:30] VITALS: PULSE 87; O2SAT 99
[2022-01-03 23:00] VITALS: PULSE 80; O2SAT 97
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
[2022-01-03] MEDS: ONDANSETRON 4 MG/2 ML INJ IV (23:15)
[2022-01-03] MEDS: SODIUM CHLORIDE 0.9% 1,000 ML 150 ML IV (23:15)
[2022-01-03] MEDS: HYDROMORPHONE 0.5 MG INJ IV (23:16)
[2022-01-03] MEDS: TET,DIPH,PERTUSS(ACELL),VAC/PF 0.5 ML SYRINGE IM (23:16)
[2022-01-03 23:30] VITALS: PULSE 95; O2SAT 96
[2022-01-03 23:31] LABS: COVID19 -Nasal RAPID Negative (Negative)
--- NOTE | 2022-01-03 23:40 | DI.RAD.S_ITS ---
PROCEDURE: XR WRIST LT MIN 3V INDICATIONS: trauma TECHNIQUE: 4 views of the wrist were acquired. COMPARISON: None. FINDINGS: Bones: There is a mildly displaced fracture of the distal radius with articular extension to the radiocarpal and distal radioulnar joints. No suspicious bony lesions. Scaphoid view: The scaphoid appears intact. Soft tissues: No suspicious soft tissue calcifications. IMPRESSION: 1. Mildly displaced intra-articular fracture of the distal radius. Dictated by: Tyler Berry M.D. on 01/04/2022 at 1:32 Approved by: Tyler Berry M.D. on 01/04/2022 at 1:33
[2022-01-03] MEDS: CEFAZOLIN 2 GM/100 ML PREMIX 100 ML IV (23:43)
[2022-01-04] VITALS (27 sets, daily range): BP systolic 108–162; BP diastolic 51–105; PULSE 78–126; RESP 9–20; TEMP 35.7–37.1; O2SAT 76–100; BMI 34.7
--- NOTE | 2022-01-04 | DI.RAD.S_ITS ---
PROCEDURE: XR TIBIA FUBULA RT 2V INDICATIONS: TIB FIB IM NAILING TECHNIQUE: 2 views of the tibia and fibula were acquired. COMPARISON: [facility], CR, XR TIBIA FIBULA RT 2V, 01/03/2022, 22:04. FINDINGS: Bones: Tibial fixation is present. Mildly displaced distal tibial and fibular diaphyseal fractures are noted. There is relatively good anatomic alignment. Soft tissues: No suspicious soft tissue calcifications or masses. IMPRESSION: Intraoperative tibial fixation. Dictated by: Virgen Malhotra M.D. on 01/04/2022 at 13:00 Approved by: Virgen Malhotra M.D. on 01/04/2022 at 13:00
[2022-01-04] MEDS: HYDROMORPHONE 0.5 MG INJ IV ×6 (00:12→08:50)
[2022-01-04 00:21] LABS: Add Manual Diff / Slide Review NO; Basophils Absolute Auto 0 /uL (0-100); Basophils Percent Auto 0.3 % (0-2); Eosinophils Absolute Auto 100 /uL (0-450); Eosinophils Percent Auto 0.6 % (2-4); Hematocrit 34.7 % (36-46); Lymphocytes Absolute Auto 600 /uL (1100-4500); Lymphocytes Percent Auto 6.7 % (25-40); Mean Corpuscular HGB Conc 31.7 % (30-36); Mean Corpuscular Volume 82.1 fL (80-100); Monocytes Absolute Auto 300 /uL (0-900); Monocytes Percent Auto 3.2 % (3-14); Neutrophils Absolute Auto 8100 /uL (1500-7000); Neutrophils Percent Auto 89.2 % (50-75); Platelet Count 281 X10^3/uL (150-400); Red Blood Cell Count 4.23 X10^6/uL (4.0-5.2); Red Cell Distribution Width 15.6 % (11.6-14.8); White Blood Cell Count 9.1 X10^3/uL (4.5-11.0)
[2022-01-04 00:28] LABS: Alanine Aminotransferase 23 IU/L (<35); Albumin 4.1 g/dL (3.5-5.0); Albumin Globulin Ratio 1.3 (1.0-2.8); Alkaline Phosphatase 79 U/L (38-126); Aspartate Aminotransferase 31 IU/L (14-36); BUN Creatinine Ratio 16.9 (6-22); Bilirubin Total 0.3 mg/dL (0.2-1.3); Blood Urea Nitrogen 10 mg/dL (7-17); Calcium 8.1 mg/dL (8.4-10.2); Carbon Dioxide 26 mmol/L (22-32); Chloride 107 mmol/L (98-107); Estimated Glomerular Filt Rate > 60 mL/min (>60); Globulin 3.2 g/dL (1.7-4.1); Glucose 131 mg/dL (70-100); HEMOLYSIS < 15 (0-50); Potassium 3.9 mmol/L (3.4-5.1); Sodium 142 mmol/L (137-145); Total Protein 7.3 g/dL (6.3-8.2)
[2022-01-04] MEDS: BACITRACIN OINT 0.9 GM PCKT 1 APPLIC TOP (01:03)
[2022-01-04] MEDS: ACETAMINOPHEN 325 MG TABLET 650 MG PO (01:18)
[2022-01-04] MEDS: OXYCODONE/ACETAMINOPHEN 5/325 TABLET 1 TAB PO ×3 (01:18→13:56)
--- NOTE | 2022-01-04 02:11 | PC.ADMIT ---
[id number] [facility] Admission Note: The patient,Ranjit Carrillo,21 y/o, was given written information regarding hospital policies, unit procedures and contact persons. Patient's smoking status: Never smoker. Vital Signs - 8 hr 01/03/22 21:54 01/03/22 22:00 01/03/22 22:01 Temperature Pulse Rate 83 93 H 79 Respiratory Rate 18 Blood Pressure 133/60 Pulse Oximetry 99 96 97 Oxygen Delivery Method Room Air Oxygen Flow Rate 01/03/22 22:01 01/03/22 22:30 01/03/22 23:00 Temperature Pulse Rate 87 80 Respiratory Rate Blood Pressure 132/89 Pulse Oximetry 99 97 Oxygen Delivery Method Oxygen Flow Rate 01/03/22 23:30 01/04/22 00:00 01/04/22 00:30 Temperature Pulse Rate 95 H 94 H 95 H Respiratory Rate Blood Pressure Pulse Oximetry 96 96 97 Oxygen Delivery Method Oxygen Flow Rate 01/04/22 01:00 01/04/22 01:25 01/04/22 02:08 Temperature 98.4 F Pulse Rate 126 H 87 Respiratory Rate 18 Blood Pressure 122/75 Pulse Oximetry 76 L 100 Oxygen Delivery Method Room Air Oxygen Flow Rate 0 Patient admitted at 0125 to room 207 from ER per stretcher and transferred into bed using slider board. Has right LE and left UE splinted. Extremities are warm to touch and able to move fingers but not toes; good capillary refill. Complained of 9/10 pain and was medicated with IV Dilaudid. Left UE elevated on pillow. Is alert and oriented. Breath sounds CTA with RA sat of 100%. HRR. Endorses intermittent nausea but no emesis. BT hypoactive and abdomen is soft. Denies dysuria, frequency or urgency with urination. Instructed re: status of NPO in anticipation of surgery later today and patient/significant other verbalize understanding. Fall risk score is high and bed alarm is activated. Oriented to call light and bed controls.
[2022-01-04] MEDS: CEFAZOLIN 2 GM/100 ML PREMIX 100 ML IV ×2 (06:15→11:25)
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
[2022-01-04] MEDS: SODIUM CHLORIDE 0.9% 1,000 ML 125 ML IV (09:37)
--- NOTE | 2022-01-04 10:08 | PC.NURSE ---
Pt to OR via bed for surgery. Chart with Pt.
[2022-01-04] MEDS: fentaNYL 100 MCG/2 ML INJ 50 MCG IV ×2 (10:38→13:31)
[2022-01-04] MEDS: MIDAZOLAM 2 MG/2 ML VIAL IV (10:41)
[2022-01-04] MEDS: LACTATED RINGERS 1,000 ML 42 ML IV (10:49)
[2022-01-04] MEDS: BUPIVACAINE 0.25% W/ EPI 30 ML VIAL INJ (11:42)
--- NOTE | 2022-01-04 11:45 | SUR.OPER ---
Supine on padded OR bed, head on pillow, arms secured on padded arm boards at <90 degrees abduction, legs uncrossed, safety belt at thigh, tape over blanket over lower legs. Position approved by surgeon and anesthesia
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
[2022-01-04] MEDS: LORazepam 2 MG/ML INJ 0.5 MG IV (13:34)
[2022-01-04] MEDS: fentaNYL 100 MCG/2 ML INJ IV (13:39)
--- NOTE | 2022-01-04 15:05 | PC.NURSE ---
Pt back to room 207 from PACU. Tearful but alert and oriented. States she is having pain but recently received po pain meds and drifts off to sleep as soon as the conversation stops. Pt requests not to be moved at this time. Able to bridge to void per bedpan prior to falling asleep. O2 sat is 95% RA. Operative foot is warm and with good color. Left wrist and hand is warm and Pt is able to wiggle her fingers. Pt has fresh ice water to drink and family is at the bedside. Pt denies needs at this time.
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
[2022-01-04] MEDS: OXYCODONE IR 10 MG TABLET PO ×2 (17:17→20:09)
[2022-01-04] MEDS: hydrOXYzine pamoate 25 MG CAPSULE PO (20:10)
[2022-01-04] MEDS: CEFAZOLIN VIAL 1 GM in SODIUM CHLORIDE 0.9% 100 ML IV (20:10)
[2022-01-04] MEDS: SODIUM CHLORIDE 0.9% FLUSH 10 ML IV (20:10)
[2022-01-04] MEDS: ASPIRIN EC 81 MG TABLET PO (20:56)
--- NOTE | 2022-01-04 23:05 | PC.NURSE ---
Patient is alert and oriented. Breath sounds CTA with RA sat of 96%. HRR. Denies nausea. BT hypoactive and denies flatus since return from surgery. Is voiding per bedpan; denies dysuria. Is able to move herself in bed. Has not yet been out of bed; will be needing to use a platform walker and will be getting PT in a.m. Left UE is splinted and has good CMS/capillary refill. Right LE dressing wrapped with salma is CDI. Toes are warm with good cap refill but is unable to wiggle toes. Complained of 10/10 pain earlier and was medicated with oxycodone + vistaril and is currently asleep. Is wearing calf SCD to left leg. Fall risk score is high and bed alarm is activated.
[2022-01-05] MEDS: OXYCODONE IR 10 MG TABLET PO ×5 (02:27→19:38)
[2022-01-05] MEDS: hydrOXYzine pamoate 25 MG CAPSULE PO (02:27)
[2022-01-05 03:00] VITALS: BP 122/83; PULSE 102; RESP 16; TEMP 36.5; O2SAT 94
[2022-01-05] MEDS: SODIUM CHLORIDE 0.9% FLUSH 10 ML IV ×2 (04:08→08:59)
[2022-01-05] MEDS: CEFAZOLIN VIAL 1 GM in SODIUM CHLORIDE 0.9% 100 ML IV (04:08)
[2022-01-05 06:06] LABS: Hematocrit 30.3 % (36-46); Hemoglobin 9.8 g/dL (12.0-16.0); Mean Corpuscular HGB Conc 32.5 % (30-36); Mean Corpuscular Hemoglobin 26.4 PG (26-34); Mean Corpuscular Volume 81.2 fL (80-100); Platelet Count 245 X10^3/uL (150-400); Red Blood Cell Count 3.73 X10^6/uL (4.0-5.2); Red Cell Distribution Width 15.4 % (11.6-14.8); White Blood Cell Count 6.5 X10^3/uL (4.5-11.0)
[2022-01-05 08:21] VITALS: BP 134/59; PULSE 116; RESP 18; TEMP 37; O2SAT 95
[2022-01-05] MEDS: ASPIRIN EC 81 MG TABLET PO ×2 (08:59→19:39)
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
[2022-01-05] MEDS: IBUPROFEN 600 MG TABLET PO (12:10)
[2022-01-05] MEDS: ACETAMINOPHEN 325 MG TABLET 650 MG PO ×2 (12:10→19:38)
[2022-01-05 13:04] VITALS: BP 115/58; PULSE 102; RESP 18; TEMP 36.7; O2SAT 93
--- NOTE | 2022-01-05 13:35 | PT.IPTN ---
Current Diagnoses Acute posthemorrhagic anemia (01/03/22) Other intraarticular fracture of lower end of left radius, initial encounter for closed fracture (01/03/22) Unspecified fracture of shaft of unspecified tibia, initial encounter for open fracture type I or II (01/03/22) Unspecified fracture of shaft of unspecified fibula, initial encounter for open fracture type I or II (01/03/22) Surgery Performed Operation Date: 01/04/22 11:00 Actual Procedures p Intramedullary Nailing Tibia(Right) - Shashank Powers MD Physical Therapy Treatment Note M2 PT-IP Current Condition Start: 01/05/22 12:09 Freq: NEEDED Status: Active Protocol: Document 01/05/22 12:09 [facility] (Rec: 01/05/22 12:22 [facility] [id number]) Physical Therapy Current Condition Current Condition Evaluation Date 01/05/22 Treatment Diagnosis L wrist fracture & R intermedullary nail R tib after tib fib fx M3 PT-IP Subjective Start: 01/05/22 12:09 Freq: NEEDED Status: Active Protocol: Document 01/05/22 13:11 [facility] (Rec: 01/05/22 13:52 [facility] [id number]) Subjective Physical Therapy Visit Type Type Treatment Note Visit Start Time 13:11 Visit Stop Time 13:35 Total Visit Minutes 24 Number of DEHORNER Visits 1 Physical Therapy Visit Comments Patient Comments Pt reporting pain but agreebale to mobilize M4 PT-IP Mobility and Gait Start: 01/05/22 12:09 Freq: NEEDED Status: Active Protocol: Document 01/05/22 13:11 [facility] (Rec: 01/05/22 13:52 [facility] [id number]) PT-Bed Mobility Assessment Supine to Sit Supine to Sit Minimal Assistance,1 Person Assistance,Head of Bed Elevated Sit to Supine Sit to Supine Minimal Assistance,1 Person Assistance Scooting Scooting to Edge of Bed Contact Guard Assistance PT-Transfer Assessment Sit to and From Stand Sit to and from Stand Contact Guard Assistance, Minimal Assistance,1 Person Assistance,Use of Upper Extremities Equipment Transfer Assistive Device Gait Belt,Platform Walker Transfers Transfer Destination Bed Transfer Technique Pt ambulated w/ platform FWW Transfer Ability Level of Assist Minimal Assistance,1 Person Assistance Comments Mobility Comments Pt in bed w/ sig other in room upon arrival from PT. Min A for sup<>sit, demonstrated gait belt application to pts SO. Pt sit<>stand w/ PFW Min A w/ cues and ambulated ~25 ft w/ PFW CGA provided by her SO. Pt returned to bed and her SO assisted LE back into bed. Discussed at home safety, pt has access to w/c and crutch but will not be able to acquire PFW until at least Sunday. Pt has three steps to enter home. Discussed possible use of w/c until PFW acquired , will trial transfers w/ crutch tomorrow AM. Gait Assessment Gait Gait Assistance Required: Contact Guard Assist,1 Person Assist Distance (Feet) 25 Able to Maintain Weight Bearing Status Yes During Gait Assistive Devices Assistive Device Gait Belt,Platform Walker Gait Deviations General Gait Pattern Antalgic,Decreased Stride Length,Decreased Feet Clearance,Step-to Gait Factors Limiting Gait Function Factors Limiting Gait Function Decreased Activity Tolerance, Decreased Strength,Limited Range of Motion,Pain Comments Gait Comments Pt only lightly WB on RLE due to pain, but able to tolerate 25 ft w/ PFW. 1x Post LOB, Min A to recover. Stair Climbing Assessment Comments Stair Climbing Comments n/t d/t not appropriate yet. PT-Balance Assessment Sitting Balance and Reactions Static Sitting Balance Ability Normal Dynamic Sitting Balance Ability Normal Standing Balance and Reactions Static Standing Balance Ability Good Dynamic Standing Balance Ability Fair Device Used platform walker M5 PT-IP Objective Assessments Start: 01/05/22 12:09 Freq: NEEDED Status: Active Protocol: Document 01/05/22 12:09 [facility] (Rec: 01/05/22 12:22 [facility] [id number]) Orientation Orientation/Cognition Level of Alertness Alert Language Function Ability No Deficits Noted Safety Awareness Understands Safety Issues Memory Description No Deficits Noted Gross Range of Motion Upper Extremity ROM Assessment Left Impaired Impairments wrist ROM limited by casting Lower Extremity ROM Assessment Right Impaired Impairments ankle and knee ROM limtied Strength Upper Extremity Strength Assessment Left Impaired Lower Extremity Strength Assessment Right Impaired M6 PT-IP Treatment Start: 01/05/22 12:09 Freq: NEEDED Status: Active Protocol: Document 01/05/22 13:11 [facility] (Rec: 01/05/22 13:52 [facility] [id number]) Physical Therapy Treatment Exercises Exercises Straight Leg Raises Education Education Provided Weight Bearing Status,Safety M7 PT-IP Assessment and Plan Start: 01/05/22 12:09 Freq: NEEDED Status: Active Protocol: Document 01/05/22 13:11 [facility] (Rec: 01/05/22 13:52 [facility] [id number]) PT Summary Assessment and Plan Potential Rehabilitation Potential Good Summary Impairments Pain,ROM,Strength,Balance,Bed Mobility,Transfers,Gait, Activity Tolerance Progress Towards Goals Slow Progress due to Pain,Slow Progress due to Medical Issues Assessment Summary Pt limited by LUE NWB and RLE WBAT w/ increased pain. She will need platform walker for mobility however unable to acquire until at least Sunday. She ambulated 25 ft this PM w / PFW but had 1x posterior LOB needing Min A to recover. Her SO states he will be home to provide assistance. She has w/ c and crutch at home that she may be able to use until PFW acquired, but will need to practice w/ PT and complete caregiver training to ensure safe transfers before d/c. Goals Bed Mobility Goal Independent Transfer Goal Independent Gait Goal Independent Gait Distance 75ft w/platform walker Other Goals up/down 3 steps w/SBA Days to Meet Goals 5 Frequency of Treatment Frequency Of Treatment Twice a Day Treatment Plan Physical Therapy Treatment Plan Bed Mobility Training,Transfer Training,Gait Training, Therapeutic Exercise,Balance Retraining,Post Op Education, Discharge Planning, Neuromuscular Re-ed Other Recommendations and Next Treatment work on gait distance, bed Focus mobility training, up/down stairs if pt able Weight Bearing Status Allowed Weight Bearing Amount (enter % WBAT RLE , NWB LUE or #) (%) Recommendations To Nursing Amount of Assist Needed 1 Person Assist Discharge Recommendations PT Discharge Recommendations Home with Assistance,Home Health Equipment Needed for Home Before tub transfer bench, platform Discharge walker Transportation Needs at Discharge Private Vehicle
[2022-01-05 17:55] VITALS: BP 139/60; PULSE 95; RESP 16; TEMP 36.2; O2SAT 96
[2022-01-05 18:33] VITALS: PULSE 92; RESP 16; O2SAT 100
--- NOTE | 2022-01-05 18:49 | PC.NURSE ---
IV removed per pt request, will be discharging home tomorrow and pt does not like the IV pain medications.
[2022-01-05 19:45] VITALS: BP 117/68; PULSE 94; RESP 20; TEMP 36.2; O2SAT 97
[2022-01-06] MEDS: ACETAMINOPHEN 325 MG TABLET 650 MG PO ×2 (02:33→07:13)
[2022-01-06] MEDS: OXYCODONE IR 10 MG TABLET PO ×3 (02:33→11:53)
[2022-01-06 02:39] VITALS: BP 120/75; PULSE 94; RESP 14; O2SAT 95
[2022-01-06 08:12] VITALS: BP 138/78; PULSE 93; RESP 16; TEMP 36.2; O2SAT 97
--- NOTE | 2022-01-06 09:31 | PT.IPTN ---
Current Diagnoses Acute posthemorrhagic anemia (01/03/22) Unspecified fracture of the lower end of unspecified radius, initial encounter for closed fracture (01/03/22) Other intraarticular fracture of lower end of left radius, initial encounter for closed fracture (01/03/22) Unspecified fracture of shaft of unspecified tibia, initial encounter for open fracture type I or II (01/03/22) Unspecified fracture of shaft of unspecified fibula, initial encounter for open fracture type I or II (01/03/22) Surgery Performed Operation Date: 01/04/22 11:00 Actual Procedures p Intramedullary Nailing Tibia(Right) - Shashank Powers MD Physical Therapy Treatment Note M2 PT-IP Current Condition Start: 01/05/22 12:09 Freq: NEEDED Status: Active Protocol: Document 01/05/22 12:09 [facility] (Rec: 01/05/22 12:22 [facility] [id number]) Physical Therapy Current Condition Current Condition Evaluation Date 01/05/22 Treatment Diagnosis L wrist fracture & R intermedullary nail R tib after tib fib fx M3 PT-IP Subjective Start: 01/05/22 12:09 Freq: NEEDED Status: Active Protocol: Document 01/06/22 09:03 [facility] (Rec: 01/06/22 12:20 [facility] [id number]) Subjective Physical Therapy Visit Type Type Treatment Note Visit Start Time 09:03 Visit Stop Time 09:31 Total Visit Minutes 28 Notes Pts SO present Number of SEC[facility]ILLER Visits 2 Physical Therapy Visit Comments Patient Comments Pt reporting pain but agreeable to mobilize M4 PT-IP Mobility and Gait Start: 01/05/22 12:09 Freq: NEEDED Status: Active Protocol: Document 01/06/22 09:03 [facility] (Rec: 01/06/22 12:20 [facility] [id number]) PT-Bed Mobility Assessment Supine to Sit Supine to Sit Contact Guard Assistance,Head of Bed Elevated Sit to Supine Sit to Supine Contact Guard Assistance Scooting Scooting to Edge of Bed Contact Guard Assistance PT-Transfer Assessment Sit to and From Stand Sit to and from Stand Contact Guard Assistance, Minimal Assistance,1 Person Assistance Equipment Transfer Assistive Device Gait Belt,Front Wheeled Walker ,Axillary Crutches Transfers Transfer Destination Bed,Chair,Toilet Transfer Technique Stand Step Pivot Transfer Ability Level of Assist Minimal Assistance,1 Person Assistance Comments Mobility Comments Pt in bed upon arrival and agreeable to practice transfers and ambulation. CGA for bed mobility. Pt performed stand step pivot trasfer from bed to chair using single crutch. Pt does not yet have platform FWW , but does have w /c and crutch at home and was able to transfer to and fom bed and chair w/ single crutch today. She also ambulate to bathroom using PFW SBA. Pts aunt is working to acquire PFW prior to pt d/c, but if not able to acquire until next week pt will be able to use w/ c and SPC for stand pivot transfers. Pt will need to use w/c up 2 steps to enter home, discussed safety. Gait Assessment Gait Gait Assistance Required: Standby Assistance Distance (Feet) 20 Able to Maintain Weight Bearing Status Yes During Gait Assistive Devices Assistive Device Gait Belt,Platform Walker Gait Deviations General Gait Pattern Antalgic,Decreased Stride Length,Decreased Feet Clearance,Step-to Gait Factors Limiting Gait Function Factors Limiting Gait Function Decreased Activity Tolerance, Decreased Strength,Limited Range of Motion,Pain Comments Gait Comments Pt only lightly WB on RLE due to pain, but able to tolerate 20 ft w/ PFW. Stair Climbing Assessment Comments Stair Climbing Comments n/t d/t not appropriate yet. Pt plans to use w/c for entering home. Discussed safety w/ pt and SO and verbalize understanding. PT-Balance Assessment Sitting Balance and Reactions Static Sitting Balance Ability Normal Dynamic Sitting Balance Ability Normal Standing Balance and Reactions Static Standing Balance Ability Good Dynamic Standing Balance Ability Good Device Used platform walker M5 PT-IP Objective Assessments Start: 01/05/22 12:09 Freq: NEEDED Status: Active Protocol: Document 01/05/22 12:09 [facility] (Rec: 01/05/22 12:22 [facility] [id number]) Orientation Orientation/Cognition Level of Alertness Alert Language Function Ability No Deficits Noted Safety Awareness Understands Safety Issues Memory Description No Deficits Noted Gross Range of Motion Upper Extremity ROM Assessment Left Impaired Impairments wrist ROM limited by casting Lower Extremity ROM Assessment Right Impaired Impairments ankle and knee ROM limtied Strength Upper Extremity Strength Assessment Left Impaired Lower Extremity Strength Assessment Right Impaired M6 PT-IP Treatment Start: 01/05/22 12:09 Freq: NEEDED Status: Active Protocol: Document 01/06/22 09:03 [facility] (Rec: 01/06/22 12:20 [facility] [id number]) Physical Therapy Treatment Exercises Exercises Straight Leg Raises Education Education Provided Weight Bearing Status,Safety Other Treatments Other Treatment Performed Completed caregiver training w / SO. M7 PT-IP Assessment and Plan Start: 01/05/22 12:09 Freq: NEEDED Status: Active Protocol: Document 01/06/22 09:03 [facility] (Rec: 01/06/22 12:20 [facility] [id number]) PT Summary Assessment and Plan Potential Rehabilitation Potential Good Summary Impairments Pain,ROM,Strength,Balance,Bed Mobility,Transfers,Gait, Activity Tolerance Progress Towards Goals Slow Progress due to Pain,Slow Progress due to Medical Issues Assessment Summary Pt limited by pain and weakness as well as opposite side fractures and NWB status of LUE. She was able to transfer using signle crutch and is aware she will need w/c prior to acquring PFW. Pts aunt should be able to acquire PFW today before pts d /c but if not pt feels safe using single crutch and w/c. She has 2-3 steps to enter and plans to use w/c w/ 2PA at this time. Pt educated on safety. Pt and SO feel safe to return home. Goals Bed Mobility Goal Independent Transfer Goal Independent Gait Goal Independent Gait Distance 75ft w/platform walker Other Goals up/down 3 steps w/SBA Days to Meet Goals 5 Frequency of Treatment Frequency Of Treatment Twice a Day Treatment Plan Physical Therapy Treatment Plan Bed Mobility Training,Transfer Training,Gait Training, Therapeutic Exercise,Balance Retraining,Post Op Education, Discharge Planning, Neuromuscular Re-ed Other Recommendations and Next Treatment work on gait distance, bed Focus mobility training, up/down stairs if pt able Weight Bearing Status Allowed Weight Bearing Amount (enter % WBAT RLE , NWB LUE or #) (%) Recommendations To Nursing Amount of Assist Needed 1 Person Assist Discharge Recommendations PT Discharge Recommendations Home with Assistance,Home Health Equipment Needed for Home Before tub transfer bench, platform Discharge walker Transportation Needs at Discharge Private Vehicle
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
[2022-01-06] MEDS: IBUPROFEN 600 MG TABLET PO (10:02)
[2022-01-06] MEDS: ASPIRIN EC 81 MG TABLET PO (10:03)
--- NOTE | 2022-01-06 10:39 | CM.DPC ---
DCP Discharge Home Per Ortho PA, pt medically stable to d/c home today with family assist and script written for stand up riser walker. Per [employer], pt did well with therapy and recommend safe d/c home with family assist and riser walker to be obtained on Sunday from DME distributor and SW discussed pt's barriers to HH being her straight Medicaid and [employer] confirms that HH not needed for safe discharge to home. Plan: Patient to d/c home via family POV today and to obtain DME after d/c and outpt follow up. Jyoti Welch MSW
[2022-01-06 12:26] LABS: Hematocrit 30.8 % (36-46)
== END 2022-01-06 13:06 | disposition home or self-care (01) | DRG 492 ==
LOC: ED 21:57 → AC 23:09
PROVIDERS: Physician Assistant; Admitting Provider Orthopaedic Surgery; Emergency Provider Emergency Medicine; PCP Family Medicine; Referring Provider Emergency Medicine; Visit Provider Orthopaedic Surgery
PROC: 0QHG06Z Insertion of Intramedullary Internal Fixation Device into Right Tibia, Open Approach (ICD-10-PCS; CPT 27759; principal; 2022-01-04 11:00)
DX: S82.391B Other fracture of lower end of right tibia, initial encounter for open fracture type I or II (principal); S82.421B Displaced transverse fracture of shaft of right fibula, initial encounter for open fracture type I or II; S52.502A Unspecified fracture of the lower end of left radius, initial encounter for closed fracture; D62 Acute posthemorrhagic anemia; W20.8XXA Other cause of strike by thrown, projected or falling object, initial encounter; Z20.822 Contact with and (suspected) exposure to COVID-19; Z23 Encounter for immunization
CPT/HCPCS: 36415; 73110; 73590; 76000; 80053; 85014; 85018; 85025; 85027; 87635; 90471; 96365; 96375; 97116; 97162; 97530; 99283; 99284; C9803; 90715; J0690; J1100; J1170; J2060; J2250; J2405; J2704; J3010

== ENCOUNTER 2022-09-21 08:39 | Emergency (ER) | payer MEDICAID, OTHER, SELFPAY ==
[2022-01-04 01:36] VITALS: BMI 34.7
[2022-09-21 08:44] VITALS: BP 126/82; PULSE 94; RESP 16; TEMP 36.9; O2SAT 98; BMI 30.9
--- NOTE | 2022-09-21 08:47 | DI.RAD.S_ITS ---
PROCEDURE: XR KNEE RT 3V INDICATIONS: trauma TECHNIQUE: 3 views of the knee were acquired. COMPARISON: [facility], CR, XR KNEE LT 3V, 09/21/2022, 9:03. [facility], CR, XR TIBIA FIBULA RIGHT, 01/19/2022, 12:36. [facility], CR, KNEE 3V RIGHT, 01/29/2017, 10:18. FINDINGS: Bones: No fractures or dislocations. No suspicious bony lesions. There are postsurgical changes related to ORIF of distal fibular fracture, which is partially visualized. Soft tissues: No joint effusion. No suspicious soft tissue calcifications. IMPRESSION: No acute abnormality in right knee. If clinical symptoms persist consider advanced imaging such as CT or MRI for further evaluation. Dictated by: Pelon Galvan M.D. on 09/21/2022 at 9:24 Approved by: Pelon Galvan M.D. on 09/21/2022 at 9:26
--- NOTE | 2022-09-21 08:47 | DI.RAD.S_ITS ---
PROCEDURE: XR PELVIS 1-2V INDICATIONS: trauma TECHNIQUE: 1 view(s) of the pelvis acquired. COMPARISON: None. FINDINGS: Bones: No fractures or dislocations. No suspicious bony lesions. Soft tissues: Visualized bowel gas pattern is normal. No suspicious soft tissue calcifications. IMPRESSION: No acute osseous abnormality. Dictated by: Pelon Galvan M.D. on 09/21/2022 at 9:27 Approved by: Pelon Galvan M.D. on 09/21/2022 at 9:27
--- NOTE | 2022-09-21 08:47 | DI.RAD.S_ITS ---
PROCEDURE: XR KNEE LT 3V INDICATIONS: trauma TECHNIQUE: 3 views of the knee were acquired. COMPARISON: None. FINDINGS: Bones: No fractures or dislocations. No suspicious bony lesions. Soft tissues: No joint effusion. No suspicious soft tissue calcifications. IMPRESSION: No acute osseous abnormality. If clinical symptoms persist or clinical suspicion for pathology is high, a repeat examination in 7-10 days, or advanced imaging such as CT or MRI is suggested for further evaluation. Dictated by: Pelon Galvan M.D. on 09/21/2022 at 9:28 Approved by: Pelon Galvan M.D. on 09/21/2022 at 9:28
--- NOTE | 2022-09-21 08:47 | DI.RAD.S_ITS ---
PROCEDURE: XR CHEST 1V INDICATIONS: trauma TECHNIQUE: One view of the chest was acquired. COMPARISON: None. FINDINGS: Surgical changes and devices: None. Lungs and pleura: Lungs are clear. No pleural effusions or pneumothorax. Mediastinum: Mediastinal contours appear normal. Heart size is normal. Bones and chest wall: Question nondisplaced left distal clavicular fracture or artifact. No suspicious bony lesions. Overlying soft tissues appear unremarkable. IMPRESSION: 1. No acute cardio pulmonary disease. 2. Question non displaced left distal clavicular fracture versus artifact. Recommend correlation with focal pain and tenderness. If clinically indicated, x-ray of the left clavicle can be obtained. Dictated by: Pelon Galvan M.D. on 09/21/2022 at 9:26 Approved by: Pelon Galvan M.D. on 09/21/2022 at 9:27
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
[2022-09-21 09:05] VITALS: BP 123/60; PULSE 88; RESP 16; O2SAT 99
[2022-09-21 09:24] VITALS: PULSE 82; O2SAT 91
[2022-09-21 09:30] VITALS: PULSE 95; RESP 16; O2SAT 98
[2022-09-21] MEDS: IBUPROFEN 400 MG TABLET 800 MG PO (09:50)
[2022-09-21 09:59] LABS: Bacteria Urine Occasional (0-1); RBC Urine None Seen (0-5/HPF)
[2022-09-21 10:00] LABS: Amorphous Sediment Urine 1+; Culture Indicated Urine Specimen Cultured; Squamous Epithelial Cell Urine 10-30 /HPF (0-5/HPF); WBC Urine 5-10/HPF (0-5/HPF)
== END 2022-09-21 09:56 | disposition home or self-care (01) ==
PROVIDERS: Emergency Provider Emergency Medicine; PCP Family Medicine; Referring Provider Emergency Medicine
DX: S80.02XA Contusion of left knee, initial encounter (principal); S80.01XA Contusion of right knee, initial encounter; S43.401A Unspecified sprain of right shoulder joint, initial encounter; V89.2XXA Person injured in unspecified motor-vehicle accident, traffic, initial encounter
CPT/HCPCS: 71045; 72170; 73562; 81003; 81015; 81025; 87086; 99284

== ENCOUNTER 2023-01-06 12:24 | Emergency (ER) | payer OTHER, SELFPAY ==
[2022-01-04 01:36] VITALS: BMI 34.7
[2023-01-06] VITALS (8 sets, daily range): BP systolic 106–150; BP diastolic 58–68; PULSE 90–124; RESP 16–22; TEMP 37.5–38.2; O2SAT 96–98; BMI 33.6
--- NOTE | 2023-01-06 12:51 | DI.RAD.S_ITS ---
PROCEDURE: XR CHEST 1V INDICATIONS: suspected sepsis TECHNIQUE: One view of the chest was acquired. COMPARISON: [facility], CR, XR CHEST 1V, 09/21/2022, 9:03. FINDINGS: Surgical changes and devices: None. Lungs and pleura: Lungs are clear. No pleural effusions or pneumothorax. Mediastinum: Mediastinal contours appear normal. Heart size is normal. Bones and chest wall: No suspicious bony lesions. Overlying soft tissues appear unremarkable. IMPRESSION: No acute cardiopulmonary findings Approved by: Gomez Schmitz M.D. on 01/06/2023 at 14:27
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
[2023-01-06] MEDS: SODIUM CHLORIDE 0.9% 1,000 ML 1000 ML IV (13:08)
[2023-01-06] MEDS: ACETAMINOPHEN IV 1,000 MG/100 ML VIAL 400 MG IV (13:08)
[2023-01-06] MEDS: KETOROLAC 30 MG/ML VIAL 15 MG IV (13:08)
[2023-01-06 13:11] LABS: Add Manual Diff / Slide Review NO; Basophils Absolute Auto 100 /uL (0-100); Basophils Percent Auto 0.5 % (0-2); Eosinophils Absolute Auto 0 /uL (0-450); Eosinophils Percent Auto 0.4 % (2-4); Hematocrit 34.8 % (36-46); Hemoglobin 11.2 g/dL (12.0-16.0); Lymphocytes Absolute Auto 1200 /uL (1100-4500); Lymphocytes Percent Auto 11.1 % (25-40); Mean Corpuscular HGB Conc 32.2 % (30-36); Mean Corpuscular Hemoglobin 25.9 PG (26-34); Mean Corpuscular Volume 80.3 fL (80-100); Monocytes Absolute Auto 600 /uL (0-900); Monocytes Percent Auto 5.7 % (3-14); Neutrophils Absolute Auto 8700 /uL (1500-7000); Neutrophils Percent Auto 82.3 % (50-75); Platelet Count 324 X10^3/uL (150-400); Red Blood Cell Count 4.34 X10^6/uL (4.0-5.2); Red Cell Distribution Width 15.6 % (11.6-14.8); White Blood Cell Count 10.5 X10^3/uL (4.5-11.0)
[2023-01-06 13:17] LABS: INR 1.3 (0.9-1.3); Prothrombin Time 14.7 SECONDS (10.1-12.7)
[2023-01-06 13:19] LABS: PTT Partial Thromboplastin Tim 40 SECONDS (26-36)
[2023-01-06 13:21] LABS: Alanine Aminotransferase 21 IU/L (<35); Albumin 4.4 g/dL (3.5-5.0); Albumin Globulin Ratio 1.2 (1.0-2.8); Alkaline Phosphatase 68 U/L (38-126); Aspartate Aminotransferase 22 IU/L (14-36); BUN Creatinine Ratio 11.1 (6-22); Blood Urea Nitrogen 8 mg/dL (7-17); Calcium 8.8 mg/dL (8.4-10.2); Carbon Dioxide 25 mmol/L (22-32); Chloride 104 mmol/L (98-107); Estimated Glomerular Filt Rate > 60 mL/min (>60); Globulin 3.7 g/dL (1.7-4.1); Glucose 103 mg/dL (70-100); HEMOLYSIS < 15 (0-50); Lipase 58 U/L (23-300); Sodium 139 mmol/L (137-145); Total Protein 8.1 g/dL (6.3-8.2)
[2023-01-06 13:22] LABS: Lactate (Lactic Acid) 0.8 mmol/L (0.7-2.1)
[2023-01-06 13:32] LABS: Strep Grp A by PCR Rapid Negative (Negative)
[2023-01-06 13:38] LABS: Procalcitonin 0.05 ng/mL (<0.5)
[2023-01-06] MEDS: DEXAMETHASONE 10 MG/ML VIAL PO (15:21)
== END 2023-01-06 15:44 | disposition home or self-care (01) ==
PROVIDERS: Emergency Provider Physician Assistant Medical; PCP Family Medicine
DX: U07.1 COVID-19 (principal)
CPT/HCPCS: 36415; 71045; 80053; 83605; 83690; 84145; 85025; 85610; 85730; 87040; 87070; 87651; 96365; 96375; 99284; J0131; J1100; J1885